=== PATIENT | male | born 1990 | race Caucasian/White ===

== ENCOUNTER 2021-02-01 13:01 | Emergency (ER) | payer OTHER ==
[~2021-02-01] VITALS: Ht 182.9 cm; Wt 98.9 kg
[2021-02-01 13:01] VITALS: BP 137/84
[2021-02-01] MEDS ORDERED: ALPR0.5T8 PO (13:18)
== END 2021-02-01 13:27 | disposition home or self-care (01) ==
LOC: ER 13:12
DX: F41.9 Anxiety disorder, unspecified (principal); Z79.899 Other long term (current) drug therapy